=== PATIENT | female | born 1950 | race Caucasian/White ===

== ENCOUNTER 2018-03-18 00:28 | Inpatient (IN) | payer MEDICARE, MEDICAID ==
[2018-03-18 01:23] LABS: % BASOPHILS 0.6 % (0.0-2.0); % EOSINOPHILS 2.3 % (0.0-5.0); % LYMPHOCYTES 12.2 % (20.0-50.0); % MONOCYTES 8.3 % (2.0-10.0); % NEUTROPHILS 76.6 % (40.0-80.0); BASOPHILE ABSOLUTE 0.1 Th/cumm (0-0.2); EOSINOPHILE ABSOLUTE 0.3 Th/cmm (0.1-0.4); HEMATOCRIT 35.8 % (41.0-60); LYMPHOCYTE ABSOLUTE 1.7 Th/cmm (1.5-3.0); MEAN CELL VOLUME 85.8 fl (81-100); MEAN CORPUSCULAR HEMOGLOBIN 28.8 pg (27.0-31.0); MEAN CORPUSCULAR HGB CONC 33.5 pg (28.0-36.0); MEAN PLATELET VOLUME 6.9 fl; MONOCYTE ABSOLUTE 1.1 Th/cmm (0.3-1.0); NEUTROPHILE ABSOLUTE 10.6 Th/cmm (1.8-8.0); PLATELET COUNT 330 Th/cmm (150-400); RED BLOOD COUNT 4.17 Mil/cmm (3.80-5.20); RED CELL DISTRIBUTION WIDTH 12.2 % (11.5-20.0); WHITE BLOOD COUNT 13.8 Th/cmm (4.8-10.8)
[2018-03-18 01:41] LABS: ALB/GLOB RATIO 1.2 (1.0-1.8); ALBUMIN 3.4 gm/dL (3.7-5.3); ALKALINE PHOSPHATASE 269 U/L (34-104); ANION GAP 14.4 (7.0-16.0); BILIRUBIN,TOTAL 0.4 mg/dL (0.3-1.0); BUN - UREA NITROGEN 19 mg/dL (7-25); CALCIUM SERUM 8.9 mg/dL (8.6-10.3); CARBON DIOXIDE 24.1 mEq/L (21.0-31.0); CHLORIDE 103 mEq/L (98-107); CREATININE - SERUM 0.5 mg/dL (0.6-1.2); CREATININE KINASE 26 U/L (30-223); GFR AFRICAN-AMERICAN > 60.0 ml/min (>90); GFR NON AFRICAN-AMERICAN > 60.0 ml/min; GLUCOSE 137 mg/dL (70-105); POTASSIUM SERUM 3.5 mEq/L (3.5-5.1); SGOT 46 U/L (13-39); SGPT/ALT 38 U/L (7-52); SODIUM SERUM 138 mEq/L (136-145); TOTAL PROTEIN,SERUM 6.3 gm/dL (6.0-8.3)
--- NOTE | 2018-03-18 01:44 | ED Physician Chart ---
ED Chief Complaint/HPI - Patient Information Date Seen:: 03/18/18 Time Seen:: 01:00 Chief Complaint:: cp History of Present Illness:: 67 yr old female here with lt sided rib like cp and dyspnea and sob with exacerbation Allergies:: Allergies Allergy/AdvReac Type Severity Reaction Status Date / Time codeine Allergy Verified 03/18/18 00:40 Vitals:: Vital Signs - 8 hr 03/18/18 00:41 Temp 99.0 F HR 121 RR 14 BP 126/79 O2 Sat % 95 ED Review of Systems - Review of Systems Skin: No skin lesions Head: No headache Eyes: No loss of vision ENT: No earache Neck: No neck pain Cardio Vascular: No chest pain Pulmonary: No SOB G/U: No dysuria Assignment Clerk: No vaginal discharge Musculoskeletal: No bone or joint pain Psychiatric: No prior psych history ED Past Medical History - Past Medical History Past Medical History: Dyslipidemia, Seizures Social History: Smoker Family Medical History - Family Member Mother History Unknown: Yes ED Physical Exam - Physical Examination Cardio Vascular: NL S1 S2 GI: Normal BS's : No CVA tenderness Other comments:: correctional program officer Extremities: normal strength in all extremities Neuro/Psych: Normal sensory exam, Normal motor strength Misc: Normal back ED Labs/Radiology/EKG Results - Lab Results Results: Laboratory Tests 03/18/18 01:10 WBC 13.8 H RBC 4.17 Hgb 12.0 Hct 35.8 L MCV 85.8 MCH 28.8 MCHC Differential 33.5 RDW 12.2 Plt Count 330 MPV 6.9 Neutrophils % 76.6 Lymphocytes % 12.2 L Monocytes % 8.3 Eosinophils % 2.3 Basophils % 0.6 - EKG Interpretations EKG Time:: 01:29 ED Septic Shock - . Is Septic Shock (SBP<90, OR Lactate>4 mmol\L) present?: No - <6hrs of presentation: Vital Signs: Vital Signs - 8 hr 03/18/18 00:41 Temp 99.0 F HR 121 RR 14 BP 126/79 O2 Sat % 95 Assessment of Lungs: Lung CTA bilateral, Other Assessment of Heart: No Rub EKG Interpretation: NSR Skin Exam: Warm, Dry, Good Turgur ED Reassessment (Disposition) - Patient Disposition Discharge/Transfer:: Acute Care w/in this hosp Transport Method:: ACLS
[2018-03-18] MEDS ORDERED: Sodium Chloride 0.9% 500 ML IV ONE (01:48)
[2018-03-18] MEDS ORDERED: cefTRIAXone 2 GM in Sodium Chloride 0.9% 100 ML IV ONE (01:48)
[2018-03-18 03:38] VITALS: BP 116/74
[2018-03-18 03:51] LABS: URINE MICROSCOPIC INDICATED? YES; URINE SOURCE CLEAN C
[2018-03-18 03:58] LABS: URINE BILIRUBIN NEGATIVE (NEGATIVE); URINE BLOOD NEGATIVE (NEGATIVE); URINE GLUCOSE (UA) NEGATIVE (NEGATIVE); URINE KETONE 15 mg/dL (NEGATIVE); URINE LEUKOCYTE ESTERASE TRACE (NEGATIVE); URINE NITRATE NEGATIVE (NEGATIVE); URINE PROTEIN NEGATIVE (NEGATIVE); URINE UROBILINOGEN 0.2 E.U./dL (0.2 - 1.0)
[2018-03-18 04:08] LABS: URINE BACTERIA MODERATE /hpf (NONE SEEN); URINE CLARITY HAZY (CLEAR); URINE COLOR YELLOW; URINE EPITHELIAL CELLS MODERATE /lpf (FEW); URINE RBC 0-2 /hpf (0-5)
[2018-03-18] MEDS: Morphine Sulfate 2 mg/mL 1mL Syr IVP PRN ×4 (06:18→20:56)
--- NOTE | 2018-03-18 08:32 | Diagnostic Imaging Report ---
Portable chest x-ray Time: 0 134 History: The ribs pain Allowing for portable technique the heart size is normal. No focal pulmonary parenchymal processes. No hilar or mediastinal abnormalities. Impression: No acute abnormalities.
[2018-03-18] MEDS ORDERED: Enoxaparin 60 mg/0.6 mL 0.6mL Syr SUBQ SCH ×2 (09:00→21:00)
[2018-03-18] MEDS ORDERED: ENOXAPARIN SUBQ SCH (09:00)
[2018-03-18 09:23] LABS: CHOLESTEROL 152 mg/dL (<200); HDL -HIGH DENSITY LIPOPROTEIN 48 mg/dL (23-92); TRIGLYCERIDES 79 mg/dL (<150)
[2018-03-18] MEDS: Enoxaparin 60 mg/0.6 mL 0.6mL Syr SUBQ SCH (21:09)
--- NOTE | 2018-03-19 02:58 | History & Physical ---
ADMIT DATE: 03/18/2018 CHIEF COMPLAINT: Chest pain. HISTORY OF PRESENT ILLNESS: A 67-year-old female with underlying history of mental disorders, hyperlipidemia, chronic smoker, and GERD, who was brought to the Emergency Room for left-sided chest pain. The patient was subsequently admitted for further treatment. During my evaluation, the patient described the chest pain as more underneath the ribcage. No associated diaphoresis, dizziness, palpitations, or any shortness of breath reported. No fever, no chills. The patient stated her pain started yesterday. The patient was noted to have an elevated troponin, possibility of the ACS was identified. The patient states that she has been doing fine since admission. No new complaints reported. PAST MEDICAL HISTORY: Mental disorders, GERD, hyperlipidemia, chronic smoker. PAST SURGICAL HISTORY: Gallbladder surgery in the past. FAMILY HISTORY: Noncontributory. SOCIAL HISTORY: Prior smoker. Denies any alcohol or drug use. ALLERGIES: CODEINE. REVIEW OF SYSTEMS: As per HPI, 12-point system was negative. PHYSICAL EXAMINATION: VITAL SIGNS: Temperature 99.1, pulse 121, respiratory rate 17, blood pressure is 134/85, ____% on nasal cannula. HEART: S1, S2 normal. LUNGS: Clear to auscultation. ABDOMEN: Soft, nontender. NEUROLOGIC: Alert, awake, oriented. No focal deficits. LABORATORY DATA: Noted. ASSESSMENT: 1. Chest pain with elevated troponin, rule out acute coronary syndrome. 2. Urinary tract infection. 3. Mental disorder. 4. Hyperlipidemia. 5. Chronic smoker. 6. Anxiety. PLAN: The patient is admitted to [facility] and Cardiology consult, echocardiogram ordered. The patient's home medications have been reconciled. Continue with nitrofurantoin and other psychotropic meds. Continue Lopid. Lipid panel ordered. Smoking cessation highly advised, monitor cardiac status closely. Lovenox started per Cardiology. We will discuss with cardiology further treatment plan. We discussed with the patient her condition and plan and with nursing staff. JOB# [id number]
[2018-03-19 05:46] LABS: % BASOPHILS 0.8 % (0.0-2.0); % EOSINOPHILS 3.4 % (0.0-5.0); % LYMPHOCYTES 14.8 % (20.0-50.0); % MONOCYTES 8.6 % (2.0-10.0); % NEUTROPHILS 72.4 % (40.0-80.0); BASOPHILE ABSOLUTE 0.1 Th/cumm (0-0.2); EOSINOPHILE ABSOLUTE 0.4 Th/cmm (0.1-0.4); HEMATOCRIT 34.1 % (41.0-60); HEMOGLOBIN 11.4 gm/dL (12-16); LYMPHOCYTE ABSOLUTE 1.9 Th/cmm (1.5-3.0); MEAN CELL VOLUME 86.2 fl (81-100); MEAN CORPUSCULAR HEMOGLOBIN 28.9 pg (27.0-31.0); MEAN CORPUSCULAR HGB CONC 33.6 pg (28.0-36.0); MEAN PLATELET VOLUME 7.7 fl; MONOCYTE ABSOLUTE 1.1 Th/cmm (0.3-1.0); NEUTROPHILE ABSOLUTE 9.3 Th/cmm (1.8-8.0); PLATELET COUNT 313 Th/cmm (150-400); RED BLOOD COUNT 3.95 Mil/cmm (3.80-5.20); RED CELL DISTRIBUTION WIDTH 12.4 % (11.5-20.0); WHITE BLOOD COUNT 12.8 Th/cmm (4.8-10.8)
[2018-03-19 06:04] LABS: ANION GAP 11.1 (7.0-16.0); BUN - UREA NITROGEN 18 mg/dL (7-25); CALCIUM SERUM 8.8 mg/dL (8.6-10.3); CHLORIDE 100 mEq/L (98-107); CREATININE - SERUM 0.5 mg/dL (0.6-1.2); GFR AFRICAN-AMERICAN > 60.0 ml/min (>90); GFR NON AFRICAN-AMERICAN > 60.0 ml/min; GLUCOSE 149 mg/dL (70-105); POTASSIUM SERUM 3.1 mEq/L (3.5-5.1); SODIUM SERUM 135 mEq/L (136-145)
[2018-03-19] MEDS: Morphine Sulfate 2 mg/mL 1mL Syr IVP PRN (06:17)
[2018-03-19] MEDS ORDERED: Pantoprazole 40 mg EC Tab PO SCH (07:30)
[2018-03-19] MEDS: Enoxaparin 60 mg/0.6 mL 0.6mL Syr SUBQ SCH (08:27)
--- NOTE | 2018-03-19 10:09 | Cardiology ---
03/18/[address] Antonio Reynoso. PROCEDURE: Echocardiogram. M-MODE ECHOCARDIOGRAM: Mitral valve, anterior leaflet of mitral valve shows normal excursion, EF velocity. Posterior leaflet of the mitral valve shows normal excursion. Left ventricular posterior wall shows normal thickness, excursion. Interventricular septum showed normal thickness, excursion. Ejection fraction 61%. Left atrium normal. Aortic root shows normal dimension, normal excursion of aortic leaflets. CONCLUSION: Normal M-mode echo, ejection fraction 61%. 2D ECHO: Long axis view showed normal sized left ventricle with normal wall motion, mitral valve shows normal excursion. Left atrium normal. Aortic root shows normal dimension, normal excursion of aortic leaflets. Short axis view of mitral valve normal. Short axis view of aortic valve normal. Apical four chamber view showed normal sized left ventricle, left atrium, right ventricle, right atrium, tricuspid, and mitral valve. Ejection fraction 61%. CONCLUSION: Normal 2D echo, ejection fraction 61%. Doppler study shows trace mitral regurgitation, mild tricuspid regurgitation, right ventricular systolic pressure 41 mmHg. CONCLUSION: Trace mitral regurgitation, mild tricuspid regurgitation, ejection fraction 61%. JOB# [id number]
[2018-03-19] MEDS ORDERED: Potassium Chloride 20 mEq ER Tab PO ONE (12:00)
--- NOTE | 2018-03-19 14:41 | Consultation ---
DATE OF CONSULTATION: 03/18/2018 HISTORY OF PRESENT ILLNESs: This is a 67-year-old female patient who has a history of depression, came to the Emergency Room complaining of chest pain. His chest wall pain persistent for 24 hours. Following this, the patient was seen and admitted. PAST MEDICAL HISTORY: Seizure disorder, hyperlipidemia, sinus tachycardia, COPD, GERD, nicotine dependence, and osteoporosis. FAMILY HISTORY: Unremarkable. SOCIAL HISTORY: The patient has been a smoker. No history of alcohol abuse. ALLERGIES: No known allergies. PHYSICAL EXAMINATION: VITAL SIGNS: Blood pressure 120/80, pulse 90, and respirations 28. HEAD: Normocephalic. No lumps or bumps. EYES: Pupils equal, reactive to light. Fundi show AV nicking, sclerae white, conjunctivae pink. NECK: Carotid 2+. Normal upstroke. JVD flat. Thyroid not palpable. Lymph nodes not palpable. CHEST: Shows increased AP diameter. No kyphosis or scoliosis. LUNGS: Bilateral bronchovesicular breath sounds. HEART: PMI fifth intercostal space with lateral to midclavicular line. S1, S2. No S3, S4, soft systolic murmur. ABDOMEN: Soft. Liver, spleen not palpable. No organomegaly. Bowel sounds active. NEUROLOGIC: Unremarkable. EXTREMITIES: Peripheral pulses 2+. No pedal edema. CLINICAL IMPRESSION: 1. Chest wall pain. 2. Hyperlipidemia, seizure disorder, sinus tachycardia, COPD, GERD, nicotine dependence, osteoporosis. PLAN: Admit the patient. We will get troponin level, EKG, Lovenox and echocardiogram. [facility]# [id number]
--- NOTE | 2018-03-19 21:28 | General Progress Note ---
Subjective - Review of Systems Service Date: 03/19/18 Subjective: Patient was seen and examined earlier today Patient was doing fine denied any new concern patient still has some lower rib cage pain but denied any associated sob or diaphoresis or dizziness or palpitation or radiation Objective - Results Result Diagrams: 03/19/18 04:55 03/19/18 04:55 Recent Labs: Laboratory Last Values WBC 12.8 Th/cmm (4.8-10.8) H 03/19/18 04:55 RBC 3.95 Mil/cmm (3.80-5.20) 03/19/18 04:55 Hgb 11.4 gm/dL (12-16) L 03/19/18 04:55 Hct 34.1 % (41.0-60) L 03/19/18 04:55 MCV 86.2 fl (81-100) 03/19/18 04:55 MCH 28.9 pg (27.0-31.0) 03/19/18 04:55 MCHC Differential 33.6 pg (28.0-36.0) 03/19/18 04:55 RDW 12.4 % (11.5-20.0) 03/19/18 04:55 Plt Count 313 Th/cmm (150-400) 03/19/18 04:55 MPV 7.7 fl 03/19/18 04:55 Neutrophils % 72.4 % (40.0-80.0) 03/19/18 04:55 Lymphocytes % 14.8 % (20.0-50.0) L 03/19/18 04:55 Monocytes % 8.6 % (2.0-10.0) 03/19/18 04:55 Eosinophils % 3.4 % (0.0-5.0) 03/19/18 04:55 Basophils % 0.8 % (0.0-2.0) 03/19/18 04:55 Sodium 135 mEq/L (136-145) L 03/19/18 04:55 Potassium 3.1 mEq/L (3.5-5.1) L 03/19/18 04:55 Chloride 100 mEq/L (98-107) 03/19/18 04:55 Carbon Dioxide 27.0 mEq/L (21.0-31.0) 03/19/18 04:55 Anion Gap 11.1 (7.0-16.0) 03/19/18 04:55 BUN 18 mg/dL (7-25) 03/19/18 04:55 Creatinine 0.5 mg/dL (0.6-1.2) L 03/19/18 04:55 Est GFR ( Amer) > 60.0 ml/min (>90) 03/19/18 04:55 Est GFR (Non-Af Amer) > 60.0 ml/min 03/19/18 04:55 BUN/Creatinine Ratio 36.0 03/19/18 04:55 Glucose 149 mg/dL (70-105) H 03/19/18 04:55 Calcium 8.8 mg/dL (8.6-10.3) 03/19/18 04:55 Total Bilirubin 0.4 mg/dL (0.3-1.0) 03/18/18 01:10 AST 46 U/L (13-39) H 03/18/18 01:10 ALT 38 U/L (7-52) 03/18/18 01:10 Alkaline Phosphatase 269 U/L (34-104) H 03/18/18 01:10 Creatine Kinase 26 U/L (30-223) L 03/18/18 01:10 Troponin I 0.09 ng/mL (0.01-0.05) H* D 03/18/18 15:30 Total Protein 6.3 gm/dL (6.0-8.3) 03/18/18 01:10 Albumin 3.4 gm/dL (3.7-5.3) L 03/18/18 01:10 Globulin 2.9 gm/dL 03/18/18 01:10 Albumin/Globulin Ratio 1.2 (1.0-1.8) 03/18/18 01:10 Triglycerides 79 mg/dL (<150) 03/18/18 07:30 Cholesterol 152 mg/dL (<200) 03/18/18 07:30 LDL Cholesterol Direct 87 mg/dL (75-193) 03/18/18 07:30 HDL Cholesterol 48 mg/dL (23-92) 03/18/18 07:30 Urine Source CLEAN C 03/18/18 02:15 Urine Color YELLOW 03/18/18 02:15 Urine Clarity HAZY (CLEAR) 03/18/18 02:15 Urine pH 6.0 (4.6 - 8.0) 03/18/18 02:15 Ur Specific [place] 1.020 (1.005-1.030) 03/18/18 02:15 Urine Protein NEGATIVE mg/dL (NEGATIVE) 03/18/18 02:15 Urine Glucose (UA) NEGATIVE mg/dL (NEGATIVE) 03/18/18 02:15 Urine Ketones 15 mg/dL (NEGATIVE) H 03/18/18 02:15 Urine Blood NEGATIVE (NEGATIVE) 03/18/18 02:15 Urine Nitrate NEGATIVE (NEGATIVE) 03/18/18 02:15 Urine Bilirubin NEGATIVE (NEGATIVE) 03/18/18 02:15 Urine Urobilinogen 0.2 E.U./dL (0.2 - 1.0) 03/18/18 02:15 Ur Leukocyte Esterase TRACE (NEGATIVE) H 03/18/18 02:15 Urine RBC 0-2 /hpf (0-5) 03/18/18 02:15 Urine WBC 2-5 /hpf (0-5) 03/18/18 02:15 Ur Epithelial Cells MODERATE /lpf (FEW) 03/18/18 02:15 Urine Bacteria MODERATE /hpf (NONE SEEN) H 03/18/18 02:15 - Physical Exam Vitals and I&O: Vital Signs Temp 99.1 F 03/19/18 15:01 Pulse 100 03/19/18 16:07 Resp 18 03/19/18 15:01 BP 113/71 03/19/18 16:07 Pulse Ox 94 03/19/18 15:01 Intake & Output 03/19/18 03/19/18 03/20/18 06:59 18:59 06:59 Intake Total 240 800 Output Total 100 Balance 140 800 Weight (lbs) 57.606 kg 57.289 kg Intake: Oral 240 800 Output: Emesis 100 Other: # Voids 2 # Bowel Movements 0 Weight Source Bedscale Bedscale Cardiovascular: Regular rate Lungs: Clear to auscultation - Procedures Procedures: Procedures Procedure Code Date EGD BIOPSY SINGLE/MULTIPLE 07144 07/05/00 ESOPHAGOGASTRODUODENOSCOPY [EGD] W/CLOSED BIOPSY 45.16 07/05/00 GROUP PSYCHOTHERAPY 32583 02/25/04 INDIVID PSYCHOTHERAP NEC 94.39 05/24/08 OTHER GROUP THERAPY 94.44 05/24/08 RECREATIONAL THERAPY 93.81 10/06/08 Assessment/Plan - Assessment Assessment: Atypical chest pain HTN Smoking Anxiety - Plan Plan: Case was discussed with cardiology who agreed for patient to be DC home Motrin scripts given Advised to f/u with PMD in one week
--- NOTE | 2018-04-08 17:38 | Discharge Summary ---
DATE OF DISCHARGE: 03/19/2018 FINAL DIAGNOSES: 1. Atypical chest pain. 2. Chronic anxiety. 3. Hypertension. 4. Chronic smoker. HOSPITAL COURSE: This is a 67-year-old female admitted for evaluation of left-sided chest pain. Seen by residential interior designer. Cardiac workup was initiated including serial troponins cycle, which subsequently came back negative. Cardiology cleared the patient for discharge home with outpatient PCP followup. The patient was counseled on smoking cessation. Underlying problems addressed and treated. Overall, stay was otherwise uneventful. DISCHARGE CONDITION: Stable. DISCHARGE MEDICATIONS: Please see medication list followed by primary MD as an outpatient. JOB# [id number]
== END 2018-03-19 16:32 | disposition home or self-care (01) | DRG 690 ==
LOC: ER 00:28 → TELE 02:10
PROVIDERS: ADMIT Family Medicine; ATTEND Family Medicine
DX: N39.0 Urinary tract infection, site not specified (principal); R07.89 Other chest pain; E78.5 Hyperlipidemia, unspecified; F41.9 Anxiety disorder, unspecified; M81.0 Age-related osteoporosis without current pathological fracture; G40.909 Epilepsy, unspecified, not intractable, without status epilepticus; K21.9 Gastro-esophageal reflux disease without esophagitis; F17.210 Nicotine dependence, cigarettes, uncomplicated; F99 Mental disorder, not otherwise specified; J44.9 Chronic obstructive pulmonary disease, unspecified; R00.0 Tachycardia, unspecified; Z88.5 Allergy status to narcotic agent
CPT/HCPCS: 36415-UA; 71045-TC; 80048-TC; 80053-TC; 80061-TC; 81001-TC; 82550-TC; 84484-TC; 85025-TC; 87086-90; 93005; 94760; J0696; J1650; J2270; J7040; Q0161; Z7610